=== PATIENT | female | born 1970 | race Hispanic/Latino ===

== ENCOUNTER 2017-08-05 13:52 | Outpatient (CLI) | payer OTHER ==
--- NOTE | 2017-08-05 16:57 | MMO ---
BILATERAL SCREENING MAMMOGRAM 08/05/17 HISTORY: Screening. COMPARISON: None. FINDINGS: Bilateral screening CC and MLO mammograms performed with computer aided detection. Scattered fibroglandular densities. Benign calcifications of the left breast. No suspicious mass, architectural distortion or microcalcifications. IMPRESSION: BI-RADS 2: Benign Finding(s) Routine annual screening mammography (for women over age 40). POS: [facility]
== END 2017-08-05 13:53 | disposition home or self-care (01) ==
LOC: SCSMAMMO 13:52
PROVIDERS: ATTEND Family Medicine
DX: Z12.31 Encounter for screening mammogram for malignant neoplasm of breast (principal)
CPT/HCPCS: 77067

== ENCOUNTER 2020-09-14 10:11 | Outpatient (CLI) | payer BC | END 2020-09-14 10:12 | disposition home or self-care (01) | LOC: BICMAMMO 10:11 | PROVIDERS: ATTEND Family Medicine | DX: Z12.31 Encounter for screening mammogram for malignant neoplasm of breast (principal); Z80.3 Family history of malignant neoplasm of breast | CPT/HCPCS: 77063; 77067 ==